=== PATIENT | female | born 1980 | race Caucasian/White ===

== ENCOUNTER 2020-08-16 14:11 | Emergency (ER) | payer OTHER ==
[2020-08-16 14:23] VITALS: BMI 28.3
[2020-08-16] MEDS ORDERED: ACETAMINOPHEN 1000 MG/100 ML VIAL (NON FORMULARY) IVPB ONE (15:32)
[2020-08-16] MEDS ORDERED: ACETAMINOPHEN INJECTION 100 ML IVPB ONE (16:35)
[2020-08-16 17:06] LABS: BASO % 0.5 % (0-2.0); EOS % 2.6 % (0-4.5); HEMATOCRIT 37.6 % (32.4-45.2); HEMOGLOBIN 12.4 GM/dL (10.7-15.3); LYMPH % 20.6 % (8-40); MCH 27.6 pg (25.7-33.7); MCHC 33.1 g/dl (32.0-36.0); MEAN CELL VOLUME 83.6 fl (80-96); MEAN PLT VOLUME 10.7 fl (7.5-11.1); MONO % 7.8 % (3.8-10.2); NEUT % 68.5 % (42.8-82.8); PLATELET COUNT 198 K/MM3 (134-434); RDW 17.9 % (11.6-15.6); WHITE BLOOD COUNT 10.5 K/mm3 (4.0-10.0)
[2020-08-16 17:28] LABS: ALBUMIN 3.2 g/dl (3.4-5.0); BLOOD UREA NITROGEN 3.9 mg/dL (7-18); CALCIUM 9.5 mg/dL (8.5-10.1)
[2020-08-16 17:32] LABS: CREATININE 0.5 mg/dL (0.55-1.3)
[2020-08-16 17:33] LABS: BILIRUBIN,TOTAL 0.5 mg/dL (0.2-1); TOT PROT 8.3 g/dl (6.4-8.2)
[2020-08-16 17:58] LABS: URINE APPEARANCE CLEAR; URINE BILIRUBIN NEGATIVE (NEGATIVE); URINE COLOR DK YELLOW; URINE GLUCOSE (UA) NEGATIVE (NEGATIVE); URINE KETONE TRACE (NEGATIVE); URINE LEUK ESTERASE NEGATIVE (NEGATIVE); URINE NITRITE NEGATIVE (NEGATIVE); URINE PROTEIN TRACE (NEGATIVE)
[2020-08-16] MEDS ORDERED: AZITHROMYCIN 500 MG TABLET PO ONE (20:44)
[2020-08-16] MEDS ORDERED: AZITHROMYCIN 250 MG TABLET ONE (21:06)
[2020-08-16 22:45] VITALS: BP 127/86; PULSE 74; TEMP 98.6
== END 2020-08-16 22:45 | disposition home or self-care (01) ==
LOC: JER 14:11
PROC: 3E0333Z Introduction of Anti-inflammatory into Peripheral Vein, Percutaneous Approach (ICD-10-PCS; principal; 2020-08-16)
PROC: 3E02329 Introduction of Other Anti-infective into Muscle, Percutaneous Approach (ICD-10-PCS; 2020-08-16)
DX: O20.0 Threatened abortion (principal)
CPT/HCPCS: 36415; 76801-TC; 76815; 80053; 81003; 83690; 84702; 85025; 86850; 86900; 86901; 87086; 87491; 87591; 93005; 93010; 99285-25; J0131

== ENCOUNTER 2021-02-13 16:05 | Inpatient (IN) | payer OTHER ==
[~2021-02-13 16:05] MED LIST: ELECTROLYTE-148 SOLN 1,000 ML IV SCH
[2021-02-13 16:07] LABS: BASO % 0.5 % (0-2.0); EOS % 0.9 % (0-4.5); LYMPH % 25.4 % (8-40); MCH 26.5 pg (25.7-33.7); MCHC 32.5 g/dl (32.0-36.0); MEAN CELL VOLUME 81.5 fl (80-96); MEAN PLT VOLUME 9.5 fl (7.5-11.1); NEUT % 68.2 % (42.8-82.8); PLATELET COUNT 197 10^3/uL (134-434); RBC 4.91 M/mm3 (3.60-5.2)
[2021-02-13 16:28] LABS: INR 1.09 (0.83-1.09); PROTHROMBIN TIME (PATIENT) 12.2 SEC (9.7-13.0)
[2021-02-13 16:31] LABS: ACTIVATED PTT 30.2 SECONDS (25.2-36.5)
[2021-02-13 16:38] LABS: BLOOD UREA NITROGEN 6.4 mg/dL (7-18); CALCIUM 8.4 mg/dL (8.5-10.1)
[2021-02-13 16:41] LABS: CREATININE 0.6 mg/dL (0.55-1.3)
[2021-02-13] MEDS ORDERED: CITRIC ACID/SODIUM CITRATE 30 ML UNIT-DOSE CUP PO ONE (16:48)
[2021-02-13] MEDS ORDERED: DEXTROSE 5%-LACTATED RINGERS 1,000 ML IV SCH (17:00)
[2021-02-13] MEDS ORDERED: LIGASURE IMPACT TP ONE (17:24)
[2021-02-13] MEDS ORDERED: ONDANSETRON 4 MG/2 ML VIAL ONE (17:46)
[2021-02-13] MEDS ORDERED: ceFAZolin SODIUM 1 GM VIAL ONE (17:46)
[2021-02-13] MEDS ORDERED: OXYTOCIN 10 UNIT/ML 10ML MDV ONE (17:58)
[2021-02-13 18:29] VITALS: BMI 30.2
[2021-02-13 19:35] LABS: CORD HCO3 23.1 mmHg (20-29); CORD PCO2 59.1 mmHg (30-78)
[2021-02-13 19:37] LABS: CORD BASE EXCESS -6.7 mmol/L (0-2); CORD HCO3 20.8 mmHg (20-29); CORD PCO2 48.4 mmHg (30-78); CORD pH 7.252 (7.14-7.44)
[2021-02-13] MEDS ORDERED: METHYLERGONOVINE MALEATE 0.2 MG/1 ML AMP IM PRN (19:54)
[2021-02-13] MEDS ORDERED: SENNOSIDES/DOCUSATE COMBO (SENNA PLUS) TABLET (UD) PO PRN (19:54)
[2021-02-13] MEDS ORDERED: oxyCODONE HCL 5 MG TABLET PO PRN (19:54)
[2021-02-13] MEDS ORDERED: OXYTOCIN 20 UNITS in 0.9% NS 20 UNIT/1,000 ML INFUS.BAG IV SCH (20:00)
[2021-02-13] MEDS ORDERED: ONDANSETRON 4 MG/2 ML VIAL IVPUSH PRN (22:34)
[2021-02-13] MEDS: IBUPROFEN 800 MG/8 ML IJ IVPB PRN (23:37)
[2021-02-14] MEDS: ACETAMINOPHEN 325 MG TABLET (FP) PO PRN ×2 (02:54→21:09)
[2021-02-14] MEDS: SIMETHICONE 80 MG TAB.CHEW (FP) PO PRN ×3 (02:54→21:15)
[2021-02-14] MEDS ORDERED: ceFAZolin SODIUM 1 GM VIAL ONE ×3 (04:22→17:06)
[2021-02-14] MEDS ORDERED: DEXTROSE 5%-WATER - 50 ML IVPB ONE ×3 (04:22→17:06)
[2021-02-14] MEDS: CEFAZOLIN 1 GM in DEXTROSE 5%-WATER - 1 GM/50 ML IVPB IVPB SCH ×3 (04:26→18:09)
[2021-02-14 06:25] LABS: BASO % 0.8 % (0-2.0); EOS % 0.2 % (0-4.5); HEMATOCRIT 35.5 % (32.4-45.2); HEMOGLOBIN 11.6 GM/dL (10.7-15.3); LYMPH % 16.2 % (8-40); MCHC 32.8 g/dl (32.0-36.0); MEAN CELL VOLUME 82.4 fl (80-96); MEAN PLT VOLUME 10.1 fl (7.5-11.1); MONO % 4.3 % (3.8-10.2); NEUT % 78.5 % (42.8-82.8); PLATELET COUNT 184 10^3/uL (134-434); RDW 19.6 % (11.6-15.6); WHITE BLOOD COUNT 14.7 K/mm3 (4.0-10.0)
[2021-02-14] MEDS: FERROUS SO4 325 MG TABLET (FP) PO SCH ×2 (08:35→17:33)
[2021-02-14] MEDS: IBUPROFEN 800 MG/8 ML IJ IVPB PRN (08:35)
[2021-02-14] MEDS ORDERED: diphenhydrAMINE HCL 25 MG CAPSULE (FP) PO PRN (08:35)
[2021-02-14] MEDS: PRENATAL VITAMINS W/ FOLIC ACID TABLET (FP) PO SCH (09:51)
[2021-02-14] MEDS ORDERED: DIPHTH,PERTUSS(ACELL),TET 0.5 ML DISP.SYRIN IM ONE (10:00)
[2021-02-14] MEDS ORDERED: ELECTROLYTE-148 SOLN 1,000 ML IV SCH (10:30)
[2021-02-14] MEDS: IBUPROFEN 600 MG TABLET (FP) PO PRN (15:18)
[2021-02-14] MEDS ORDERED: BISACODYL 10 MG SUPP.RECT RC PRN (19:55)
[2021-02-15] MEDS: SIMETHICONE 80 MG TAB.CHEW (FP) PO PRN ×2 (02:22→13:49)
[2021-02-15] MEDS: IBUPROFEN 600 MG TABLET (FP) PO PRN ×2 (02:22→13:49)
[2021-02-15] MEDS: ACETAMINOPHEN 325 MG TABLET (FP) PO PRN (05:35)
[2021-02-15] MEDS: FERROUS SO4 325 MG TABLET (FP) PO SCH (08:51)
[2021-02-15] MEDS ORDERED: ENOXAPARIN NA (PORCINE) 40 MG/0.4 ML DISP.SYRIN SQ SCH (10:00)
[2021-02-15] MEDS: PRENATAL VITAMINS W/ FOLIC ACID TABLET (FP) PO SCH (10:50)
[2021-02-15 11:10] VITALS: BP 146/81; PULSE 77; TEMP 98.2
== END 2021-02-15 14:15 | disposition home or self-care (01) | DRG 540 ==
LOC: JLDR 16:05 → J3W 20:54
PROVIDERS: ADMIT Obstetrics & Gynecology; ATTEND Obstetrics & Gynecology
PROC: 10D00Z1 Extraction of Products of Conception, Low, Open Approach (ICD-10-PCS; principal; 2021-02-13)
PROC: 0DNU0ZZ Release Omentum, Open Approach (ICD-10-PCS; 2021-02-13)
PROC: 0UB70ZZ Excision of Bilateral Fallopian Tubes, Open Approach (ICD-10-PCS; 2021-02-13)
DX: O34.211 Maternal care for low transverse scar from previous cesarean delivery (principal); N85.8 Other specified noninflammatory disorders of uterus; O24.424 Gestational diabetes mellitus in childbirth, insulin controlled; O36.8330 Maternal care for abnormalities of the fetal heart rate or rhythm, third trimester, not applicable or unspecified; O99.892 Other specified diseases and conditions complicating childbirth; N73.6 Female pelvic peritoneal adhesions (postinfective); Z3A.36 36 weeks gestation of pregnancy; Z30.2 Encounter for sterilization; Z37.0 Single live birth
CPT/HCPCS: 36415; 36600; 80048; 82803; 82962; 85025; 85610; 85730; 86780; 86850; 86900; 86901; C9803; U0003; U0005

== ENCOUNTER 2023-03-10 07:26 | Inpatient (IN) | payer OTHER ==
[2023-03-10 07:40] VITALS: BMI 26.9
[2023-03-10] MEDS ORDERED: SODIUM CHLORIDE 1,000 ML IV STA (08:17)
[2023-03-10] MEDS ORDERED: ACETAMINOPHEN 1000 MG/100 ML BAG IVPB ONE (08:17)
[2023-03-10] MEDS ORDERED: FAMOTIDINE 20 MG/50 ML IVPB 20 MG/50 ML MG IVPB ONE ×2 (08:17→08:36)
[2023-03-10] MEDS ORDERED: MAG HYDROX/AL HYDROX/SIMETH 30 ML UNIT-DOSE CUP PO ONE (08:17)
[2023-03-10] MEDS ORDERED: ONDANSETRON 4 MG/2 ML VIAL IVPUSH ONE (08:33)
[2023-03-10] MEDS ORDERED: ACETAMINOPHEN INJECTION 100 ML IVPB ONE (08:36)
[2023-03-10] MEDS ORDERED: MAG HYDROX/AL HYDROX/SIMETH 30 ML UNIT-DOSE CUP ONE (08:36)
[2023-03-10] MEDS ORDERED: ONDANSETRON 4 MG/2 ML VIAL ONE (09:15)
[2023-03-10 09:44] LABS: BASO % 0.7 % (0-2.0); EOS % 0.8 % (0-4.5); HEMATOCRIT 35.4 % (32.4-45.2); HEMOGLOBIN 11.3 GM/dL (10.7-15.3); LYMPH % 14.6 % (8-40); MCH 26.7 pg (25.7-33.7); MCHC 31.8 g/dl (32.0-36.0); MEAN PLT VOLUME 9.2 fl (7.5-11.1); MONO % 9.2 % (3.8-10.2); NEUT % 74.7 % (42.8-82.8); PLATELET COUNT 112 10^3/uL (134-434); RBC 4.22 M/mm3 (3.60-5.2); RDW 24.8 % (11.6-15.6); WHITE BLOOD COUNT 7.5 K/mm3 (4.0-10.0)
[2023-03-10 09:51] LABS: INR 1.85 (0.83-1.09); PROTHROMBIN TIME (PATIENT) 21.3 SEC (9.7-13.0)
[2023-03-10 09:53] LABS: ACTIVATED PTT 41.2 SECONDS (25.2-36.5)
[2023-03-10 10:05] LABS: CHLORIDE 98 mmol/L (98-107); POTASSIUM 3.3 mmol/L (3.5-5.1); SODIUM 133 mmol/L (136-145)
[2023-03-10 10:07] LABS: CALCIUM 7.8 mg/dL (8.5-10.1); GLUCOSE,RANDOM 118 mg/dL (74-106)
[2023-03-10 10:08] LABS: ALBUMIN 2.1 g/dl (3.4-5.0); ANION GAP 9 mmol/L (4-13); CO2 26 mmol/L (21-32); LIPASE 138 U/L (73-393)
[2023-03-10 10:10] LABS: SGPT/ALT 52 U/L (13-61)
[2023-03-10 10:11] LABS: CREATININE 0.6 mg/dL (0.55-1.3); SGOT/AST 181 U/L (15-37)
[2023-03-10 10:12] LABS: BILIRUBIN,TOTAL 2.8 mg/dL (0.2-1); TOT PROT 8.1 g/dl (6.4-8.2)
[2023-03-10 10:13] LABS: ALK PHOS 306 U/L (45-117)
[2023-03-10 10:26] LABS: BLOOD UREA NITROGEN 2.3 mg/dL (7-18)
[2023-03-10 10:44] LABS: ANISOCYTOSIS 1+; MACROCYTOSIS 0; TARGET CELLS 1+
[2023-03-10] MEDS ORDERED: POTASSIUM CHLORIDE TABS 20 MEQ TABLET.ER (FP) PO ONE ×2 (10:46→14:10)
[2023-03-10 10:59] LABS: URINE APPEARANCE CLEAR; URINE BILIRUBIN NEGATIVE (NEGATIVE); URINE COLOR YELLOW; URINE GLUCOSE (UA) NEGATIVE (NEGATIVE); URINE KETONE NEGATIVE (NEGATIVE); URINE LEUK ESTERASE NEGATIVE (NEGATIVE); URINE NITRITE NEGATIVE (NEGATIVE); URINE PROTEIN NEGATIVE (NEGATIVE)
[2023-03-10 11:00] LABS: HCG,QUALITATIVE URINE Negative
[2023-03-10 11:23] LABS: CHLORIDE 103 mmol/L (98-107); POTASSIUM 3.1 mmol/L (3.5-5.1); SODIUM 136 mmol/L (136-145)
[2023-03-10 11:25] LABS: ANION GAP 7 mmol/L (4-13); CALCIUM 7.3 mg/dL (8.5-10.1); CO2 26 mmol/L (21-32); GLUCOSE,RANDOM 107 mg/dL (74-106)
[2023-03-10 11:29] LABS: BLOOD UREA NITROGEN 2.2 mg/dL (7-18); CREATININE 0.4 mg/dL (0.55-1.3)
[2023-03-10] MEDS ORDERED: morphine CARPU-JECT 4 MG/1 ML DISP.SYRIN IVPUSH ONE (12:37)
[2023-03-10] MEDS ORDERED: POTASSIUM CHLORIDE ORAL LIQUID 20 MEQ/15 ML PO ONE (12:37)
[2023-03-10 13:43] LABS: ALBUMIN 1.9 g/dl (3.4-5.0)
[2023-03-10 13:46] LABS: BILIRUBIN,DIRECT 2.1 mg/dL (0.0-0.2); SGOT/AST 147 U/L (15-37); SGPT/ALT 44 U/L (13-61)
[2023-03-10 13:48] LABS: BILIRUBIN,TOTAL 2.6 mg/dL (0.2-1); TOT PROT 7.3 g/dl (6.4-8.2)
[2023-03-10 13:52] LABS: ALK PHOS 271 U/L (45-117)
[2023-03-10] MEDS ORDERED: morphine SULFATE 4 MG/ML VIAL ONE (14:10)
[2023-03-10] MEDS ORDERED: POTASSIUM CHLORIDE ORAL LIQUID 20 MEQ/15 ML ONE (14:11)
[2023-03-10 18:54] LABS: BF WBC & OTHER NUCLEATED CELLS 174 /mm3
[2023-03-10 20:20] LABS: COCAINE, UR NEGATIVE (NEGATIVE); METHADONE, UR NEGATIVE (NEGATIVE); OPIATES, URI NEGATIVE (NEGATIVE); PHENCYCLIDINE,URINE NEGATIVE (NEGATIVE); URINE AMPHETAMINES NEGATIVE (NEGATIVE); URINE BARBITURATES NEGATIVE (NEGATIVE); URINE BENZODIAZEPINES NEGATIVE (NEGATIVE)
[2023-03-10 21:13] LABS: BODY FLUID MESOTHELIAL 2 %
[2023-03-10 21:15] LABS: BODY FLUID MACROPHAGES 6 %; BODY FLUID MONOCYTE 13 %
[2023-03-10] MEDS: MAG HYDROX/AL HYDROX/SIMETH 30 ML UNIT-DOSE CUP PO PRN (22:20)
[2023-03-11 08:28] LABS: BASO % 0.6 % (0-2.0); EOS % 1.4 % (0-4.5); HEMATOCRIT 31.5 % (32.4-45.2); HEMOGLOBIN 9.9 GM/dL (10.7-15.3); LYMPH % 18.4 % (8-40); MCH 26.6 pg (25.7-33.7); MCHC 31.6 g/dl (32.0-36.0); MEAN CELL VOLUME 84.3 fl (80-96); MEAN PLT VOLUME 9.1 fl (7.5-11.1); MONO % 12.8 % (3.8-10.2); NEUT % 66.8 % (42.8-82.8); PLATELET COUNT 100 10^3/uL (134-434); RBC 3.73 M/mm3 (3.60-5.2); RDW 25.4 % (11.6-15.6); WHITE BLOOD COUNT 5.9 K/mm3 (4.0-10.0)
[2023-03-11 10:45] LABS: IRON SERUM 15 ug/dL (50-175)
[2023-03-11 10:46] LABS: TOTAL IRON BINDING CAPACITY 184 ug/dL (250-450)
[2023-03-11] MEDS: PANTOPRAZOLE 40 MG TABLET PO SCH (11:26)
[2023-03-11] MEDS ORDERED: PHYTONADIONE 10 MG/1 ML AMP IVPB ONE (12:00)
[2023-03-11] MEDS: KCL 10 MEQ IVPB 10 MEQ/100 ML INFUS.BAG IVPB SCH ×2 (13:27→15:06)
[2023-03-11] MEDS ORDERED: POTASSIUM CHLORIDE TABS 20 MEQ TABLET.ER (FP) PO ONE (15:00)
[2023-03-12] MEDS: PANTOPRAZOLE 40 MG TABLET PO SCH (09:01)
[2023-03-12 09:25] LABS: BASO % 0.5 % (0-2.0); EOS % 1.1 % (0-4.5); HEMATOCRIT 33.3 % (32.4-45.2); HEMOGLOBIN 10.5 GM/dL (10.7-15.3); LYMPH % 20.4 % (8-40); MCHC 31.6 g/dl (32.0-36.0); MEAN CELL VOLUME 85.4 fl (80-96); MEAN PLT VOLUME 9.1 fl (7.5-11.1); MONO % 11.4 % (3.8-10.2); NEUT % 66.6 % (42.8-82.8); PLATELET COUNT 114 10^3/uL (134-434); RDW 25.3 % (11.6-15.6); WHITE BLOOD COUNT 6.4 K/mm3 (4.0-10.0)
[2023-03-12 09:33] LABS: INR 1.52 (0.83-1.09); PROTHROMBIN TIME (PATIENT) 17.6 SEC (9.7-13.0)
[2023-03-12 09:48] LABS: CHLORIDE 106 mmol/L (98-107); POTASSIUM 3.5 mmol/L (3.5-5.1); SODIUM 136 mmol/L (136-145)
[2023-03-12 09:56] LABS: GLUCOSE,RANDOM 115 mg/dL (74-106)
[2023-03-12 09:58] LABS: ALBUMIN 1.9 g/dl (3.4-5.0); ANION GAP 6 mmol/L (4-13); CALCIUM 7.6 mg/dL (8.5-10.1); CO2 24 mmol/L (21-32); SGOT/AST 76 U/L (15-37); TOT PROT 7.2 g/dl (6.4-8.2)
[2023-03-12 09:59] LABS: ALK PHOS 263 U/L (45-117); CREATININE 0.5 mg/dL (0.55-1.3); SGPT/ALT 29 U/L (13-61)
[2023-03-12 10:24] LABS: BLOOD UREA NITROGEN 2.9 mg/dL (7-18)
[2023-03-12 12:07] LABS: MAGNESIUM 1.9 mg/dL (1.8-2.4)
[2023-03-12 12:10] LABS: PHOSPHOROUS 2.3 mg/dL (2.5-4.9)
[2023-03-12] MEDS: MAG HYDROX/AL HYDROX/SIMETH 30 ML UNIT-DOSE CUP PO PRN (23:05)
[2023-03-13 08:06] LABS: CARCINOEMBRYONIC ANTIGEN 5.6 ng/mL (0.0-4.7)
[2023-03-13 08:23] LABS: BASO % 0.7 % (0-2.0); HEMATOCRIT 32.7 % (32.4-45.2); HEMOGLOBIN 10.4 GM/dL (10.7-15.3); MCH 26.8 pg (25.7-33.7); MCHC 31.6 g/dl (32.0-36.0); MEAN CELL VOLUME 84.8 fl (80-96); MEAN PLT VOLUME 9.3 fl (7.5-11.1); MONO % 12.8 % (3.8-10.2); NEUT % 54.5 % (42.8-82.8); PLATELET COUNT 115 10^3/uL (134-434); RBC 3.86 M/mm3 (3.60-5.2); RDW 25.1 % (11.6-15.6); WHITE BLOOD COUNT 6.8 K/mm3 (4.0-10.0)
[2023-03-13 08:28] LABS: CHLORIDE 105 mmol/L (98-107); POTASSIUM 3.5 mmol/L (3.5-5.1); SODIUM 136 mmol/L (136-145)
[2023-03-13 08:31] LABS: CALCIUM 7.7 mg/dL (8.5-10.1)
[2023-03-13 08:32] LABS: ALBUMIN 1.8 g/dl (3.4-5.0); ANION GAP 6 mmol/L (4-13); CO2 25 mmol/L (21-32); GLUCOSE,RANDOM 108 mg/dL (74-106)
[2023-03-13 08:35] LABS: CREATININE 0.4 mg/dL (0.55-1.3); SGOT/AST 61 U/L (15-37); SGPT/ALT 24 U/L (13-61)
[2023-03-13 08:36] LABS: BILIRUBIN,TOTAL 2.1 mg/dL (0.2-1)
[2023-03-13 08:37] LABS: ALK PHOS 246 U/L (45-117)
[2023-03-13 08:41] LABS: BLOOD UREA NITROGEN 2.9 mg/dL (7-18)
[2023-03-13] MEDS: PANTOPRAZOLE 40 MG TABLET PO SCH (09:03)
[2023-03-13] MEDS: CEFTRIAXONE 1 GM in DEXTROSE 5%-WATER - 50 ML IVPB SCH (09:49)
[2023-03-13] MEDS: traMADol HCL 50 MG TABLET PO PRN ×2 (10:40→19:59)
[2023-03-14 09:54] LABS: INR 1.47 (0.83-1.09)
[2023-03-14 09:55] LABS: BASO % 0.8 % (0-2.0); EOS % 1.9 % (0-4.5); HEMATOCRIT 34.8 % (32.4-45.2); HEMOGLOBIN 11.6 GM/dL (10.7-15.3); MCH 27.8 pg (25.7-33.7); MCHC 33.3 g/dl (32.0-36.0); MEAN CELL VOLUME 83.5 fl (80-96); MEAN PLT VOLUME 9.5 fl (7.5-11.1); MONO % 10.4 % (3.8-10.2); NEUT % 57.9 % (42.8-82.8); PLATELET COUNT 146 10^3/uL (134-434); RBC 4.17 M/mm3 (3.60-5.2); RDW 25.3 % (11.6-15.6)
[2023-03-14 10:09] LABS: CHLORIDE 101 mmol/L (98-107); SODIUM 132 mmol/L (136-145)
[2023-03-14 10:13] LABS: BLOOD UREA NITROGEN 3.1 mg/dL (7-18); CALCIUM 8.3 mg/dL (8.5-10.1)
[2023-03-14 10:14] LABS: ALBUMIN 2.1 g/dl (3.4-5.0); CO2 25 mmol/L (21-32); GLUCOSE,RANDOM 112 mg/dL (74-106)
[2023-03-14 10:17] LABS: CREATININE 0.7 mg/dL (0.55-1.3); SGOT/AST 68 U/L (15-37); SGPT/ALT 26 U/L (13-61)
[2023-03-14 10:18] LABS: BILIRUBIN,TOTAL 2.3 mg/dL (0.2-1)
[2023-03-14 10:20] LABS: ALK PHOS 265 U/L (45-117)
[2023-03-14 10:23] LABS: ANION GAP 7 mmol/L (4-13); POTASSIUM 2.7 mmol/L (3.5-5.1)
[2023-03-14 10:31] LABS: ANISOCYTOSIS 2+; MACROCYTOSIS 0
[2023-03-14] MEDS: CEFTRIAXONE 1 GM in DEXTROSE 5%-WATER - 50 ML IVPB SCH (11:51)
[2023-03-14] MEDS: PANTOPRAZOLE 40 MG TABLET PO SCH (11:51)
[2023-03-14] MEDS: KCL 10 MEQ IVPB 10 MEQ/100 ML INFUS.BAG IVPB SCH (13:26)
[2023-03-14 15:07] LABS: BODY FLUID ALBUMIN 0.9 g/dL (Not Estab.)
[2023-03-14] MEDS: traMADol HCL 50 MG TABLET PO PRN ×2 (15:18→23:30)
[2023-03-14] MEDS: MAG HYDROX/AL HYDROX/SIMETH 30 ML UNIT-DOSE CUP PO PRN (15:19)
[2023-03-14] MEDS ORDERED: ACETAMINOPHEN 1000 MG/100 ML BAG IVPB ONE (18:09)
[2023-03-15 08:58] LABS: INR 1.58 (0.83-1.09); PROTHROMBIN TIME (PATIENT) 18.3 SEC (9.7-13.0)
[2023-03-15 09:05] LABS: BASO % 0.9 % (0-2.0); EOS % 1.9 % (0-4.5); HEMATOCRIT 33.6 % (32.4-45.2); HEMOGLOBIN 10.9 GM/dL (10.7-15.3); LYMPH % 29.4 % (8-40); MCH 27.6 pg (25.7-33.7); MCHC 32.3 g/dl (32.0-36.0); MEAN CELL VOLUME 85.2 fl (80-96); MEAN PLT VOLUME 9.1 fl (7.5-11.1); MONO % 10.7 % (3.8-10.2); NEUT % 57.1 % (42.8-82.8); PLATELET COUNT 159 10^3/uL (134-434); RBC 3.95 M/mm3 (3.60-5.2); RDW 24.6 % (11.6-15.6); WHITE BLOOD COUNT 7.4 K/mm3 (4.0-10.0)
[2023-03-15 09:28] LABS: CHLORIDE 102 mmol/L (98-107); POTASSIUM 3.1 mmol/L (3.5-5.1); SODIUM 137 mmol/L (136-145)
[2023-03-15] MEDS: PANTOPRAZOLE 40 MG TABLET PO SCH (09:56)
[2023-03-15] MEDS: traMADol HCL 50 MG TABLET PO PRN ×2 (09:56→21:26)
[2023-03-15] MEDS ORDERED: KCL 10 MEQ IVPB 10 MEQ/100 ML INFUS.BAG IVPB SCH (10:00)
[2023-03-15] MEDS ORDERED: MAGNESIUM 1GM/D5W 100ML - 100 ML IVPB IVPB ONE (10:00)
[2023-03-15] MEDS ORDERED: PIPERACILLIN/TAZOB 3.375 GM 3.375 GM in DEXTROSE 5%-WATER - 50 ML IVPB SCH (10:00)
[2023-03-15 10:18] LABS: ALBUMIN 2.1 g/dl (3.4-5.0)
[2023-03-15 10:19] LABS: CALCIUM 8.4 mg/dL (8.5-10.1); GLUCOSE,RANDOM 105 mg/dL (74-106)
[2023-03-15 10:21] LABS: CREATININE 0.5 mg/dL (0.55-1.3)
[2023-03-15 10:22] LABS: BILIRUBIN,TOTAL 2.2 mg/dL (0.2-1); SGOT/AST 64 U/L (15-37); SGPT/ALT 24 U/L (13-61); TOT PROT 7.9 g/dl (6.4-8.2)
[2023-03-15 10:24] LABS: ALK PHOS 236 U/L (45-117)
[2023-03-15 10:30] LABS: ANION GAP 9 mmol/L (4-13); BLOOD UREA NITROGEN 2.4 mg/dL (7-18); CO2 26 mmol/L (21-32)
[2023-03-15] MEDS: CLARITHROMYCIN 500 MG TABLET (UD) PO SCH ×2 (14:32→21:28)
[2023-03-15] MEDS: AMOXICILLIN 500 MG CAPSULE (FP) PO SCH (18:13)
[2023-03-15] MEDS: CEFTRIAXONE 1 GM in DEXTROSE 5%-WATER - 50 ML IVPB SCH (18:13)
[2023-03-15] MEDS: MAG HYDROX/AL HYDROX/SIMETH 30 ML UNIT-DOSE CUP PO PRN (23:03)
[2023-03-16] MEDS: AMOXICILLIN 500 MG CAPSULE (FP) PO SCH ×2 (06:19→18:00)
[2023-03-16] MEDS: traMADol HCL 50 MG TABLET PO PRN ×2 (06:20→17:57)
[2023-03-16 07:34] LABS: BASO % 0.9 % (0-2.0); EOS % 1.9 % (0-4.5); HEMATOCRIT 30.9 % (32.4-45.2); LYMPH % 25.8 % (8-40); MCH 27.4 pg (25.7-33.7); MCHC 32.3 g/dl (32.0-36.0); MEAN CELL VOLUME 84.9 fl (80-96); MEAN PLT VOLUME 8.8 fl (7.5-11.1); MONO % 11.2 % (3.8-10.2); NEUT % 60.2 % (42.8-82.8); PLATELET COUNT 151 10^3/uL (134-434); RBC 3.64 M/mm3 (3.60-5.2); RDW 24.9 % (11.6-15.6); WHITE BLOOD COUNT 6.7 K/mm3 (4.0-10.0)
[2023-03-16 07:36] LABS: INR 1.65 (0.83-1.09)
[2023-03-16 07:47] LABS: CHLORIDE 102 mmol/L (98-107); POTASSIUM 3.2 mmol/L (3.5-5.1); SODIUM 136 mmol/L (136-145)
[2023-03-16 07:54] LABS: ALBUMIN 1.8 g/dl (3.4-5.0); ANION GAP 6 mmol/L (4-13); CO2 27 mmol/L (21-32)
[2023-03-16 07:56] LABS: CREATININE 0.4 mg/dL (0.55-1.3); GLUCOSE,RANDOM 104 mg/dL (74-106); LDH 172 U/L (84-246)
[2023-03-16 07:58] LABS: BILIRUBIN,TOTAL 1.6 mg/dL (0.2-1); SGOT/AST 61 U/L (15-37); SGPT/ALT 23 U/L (13-61); TOT PROT 6.9 g/dl (6.4-8.2)
[2023-03-16 08:24] LABS: ALK PHOS 204 U/L (45-117); BLOOD UREA NITROGEN 1.8 mg/dL (7-18)
[2023-03-16] MEDS ORDERED: SODIUM PHOSPHATE - 20 MM in DEXTROSE 5%-WATER - 250 ML IVPB ONE (10:00)
[2023-03-16] MEDS ORDERED: cefTRIAXone SODIUM 1 GM VIAL ONE (10:41)
[2023-03-16] MEDS: CALCIUM 500MG/VIT-D 200 UNITS COMBO TABLET (FP) PO SCH ×2 (10:52→21:15)
[2023-03-16] MEDS: MULTIVITAMINS (DAILY MVI) TABLET (FP) PO SCH (10:52)
[2023-03-16] MEDS: PANTOPRAZOLE 40 MG TABLET PO SCH (10:52)
[2023-03-16] MEDS: MAGNESIUM OXIDE 400 MG TABLET (FP) PO SCH ×2 (10:52→21:15)
[2023-03-16] MEDS: CLARITHROMYCIN 500 MG TABLET (UD) PO SCH ×2 (10:53→22:09)
[2023-03-16] MEDS: AMINO ACIDS 4.25%/D5W 1,000 ML IV SCH (10:54)
[2023-03-16] MEDS: CEFTRIAXONE 1 GM in DEXTROSE 5%-WATER - 50 ML IVPB SCH (11:12)
[2023-03-16] MEDS: POTASSIUM CHLORIDE TABS 20 MEQ TABLET.ER (FP) PO SCH (17:57)
[2023-03-17] MEDS: AMOXICILLIN 500 MG CAPSULE (FP) PO SCH ×2 (06:04→18:59)
[2023-03-17] MEDS ORDERED: IRON SUCROSE INJECTION 100 MG in SODIUM CHLORIDE 95 ML IVPB ONE (08:21)
[2023-03-17 08:31] LABS: BASO % 0.8 % (0-2.0); EOS % 1.4 % (0-4.5); HEMOGLOBIN 10.7 GM/dL (10.7-15.3); LYMPH % 30.5 % (8-40); MCH 27.2 pg (25.7-33.7); MCHC 32.4 g/dl (32.0-36.0); MEAN PLT VOLUME 8.9 fl (7.5-11.1); MONO % 8.9 % (3.8-10.2); NEUT % 58.4 % (42.8-82.8); PLATELET COUNT 193 10^3/uL (134-434); RBC 3.93 M/mm3 (3.60-5.2); RDW 24.2 % (11.6-15.6)
[2023-03-17 08:51] LABS: CHLORIDE 102 mmol/L (98-107); SODIUM 135 mmol/L (136-145)
[2023-03-17 08:55] LABS: CALCIUM 7.8 mg/dL (8.5-10.1); CO2 28 mmol/L (21-32); GLUCOSE,RANDOM 106 mg/dL (74-106); MAGNESIUM 1.9 mg/dL (1.8-2.4)
[2023-03-17 08:58] LABS: CREATININE 0.5 mg/dL (0.55-1.3); PHOSPHOROUS 2.9 mg/dL (2.5-4.9)
[2023-03-17 09:01] LABS: ANION GAP 5 mmol/L (4-13); BLOOD UREA NITROGEN 2.6 mg/dL (7-18); POTASSIUM 2.9 mmol/L (3.5-5.1)
[2023-03-17] MEDS ORDERED: KCL 10 MEQ IVPB 10 MEQ/100 ML INFUS.BAG IVPB SCH (10:00)
[2023-03-17] MEDS: CEFTRIAXONE 1 GM in DEXTROSE 5%-WATER - 50 ML IVPB SCH (10:37)
[2023-03-17] MEDS: POTASSIUM CHLORIDE TABS 20 MEQ TABLET.ER (FP) PO SCH (10:37)
[2023-03-17] MEDS: PANTOPRAZOLE 40 MG TABLET PO SCH (10:37)
[2023-03-17] MEDS: MAGNESIUM OXIDE 400 MG TABLET (FP) PO SCH ×2 (10:37→22:26)
[2023-03-17] MEDS: AMINO ACIDS 4.25%/D5W 1,000 ML IV SCH ×2 (10:37→22:25)
[2023-03-17] MEDS: MULTIVITAMINS (DAILY MVI) TABLET (FP) PO SCH (10:38)
[2023-03-17] MEDS: CLARITHROMYCIN 500 MG TABLET (UD) PO SCH ×2 (10:38→22:49)
[2023-03-17] MEDS: CALCIUM 500MG/VIT-D 200 UNITS COMBO TABLET (FP) PO SCH ×2 (10:38→22:26)
[2023-03-17] MEDS: MAG HYDROX/AL HYDROX/SIMETH 30 ML UNIT-DOSE CUP PO PRN (17:08)
[2023-03-18] MEDS ORDERED: ACETAMINOPHEN 325 MG TABLET (FP) PO ONE (03:24)
[2023-03-18] MEDS: AMINO ACIDS 4.25%/D5W 1,000 ML IV SCH ×2 (03:41→09:01)
[2023-03-18] MEDS: AMOXICILLIN 500 MG CAPSULE (FP) PO SCH ×2 (07:02→19:10)
[2023-03-18] MEDS: PANTOPRAZOLE 40 MG TABLET PO SCH (09:51)
[2023-03-18] MEDS: CALCIUM 500MG/VIT-D 200 UNITS COMBO TABLET (FP) PO SCH ×2 (09:51→22:02)
[2023-03-18] MEDS: CEFTRIAXONE 1 GM in DEXTROSE 5%-WATER - 50 ML IVPB SCH (09:51)
[2023-03-18] MEDS: MULTIVITAMINS (DAILY MVI) TABLET (FP) PO SCH (09:51)
[2023-03-18] MEDS: POTASSIUM CHLORIDE TABS 20 MEQ TABLET.ER (FP) PO SCH (09:51)
[2023-03-18] MEDS: MAGNESIUM OXIDE 400 MG TABLET (FP) PO SCH (09:51)
[2023-03-18] MEDS: CLARITHROMYCIN 500 MG TABLET (UD) PO SCH ×2 (09:52→22:12)
[2023-03-18] MEDS ORDERED: SIMETHICONE 80 MG TAB.CHEW (FP) PO PRN (21:22)
[2023-03-19] MEDS: MAG HYDROX/AL HYDROX/SIMETH 30 ML UNIT-DOSE CUP PO PRN (01:37)
[2023-03-19] MEDS: AMOXICILLIN 500 MG CAPSULE (FP) PO SCH ×2 (06:27→21:33)
[2023-03-19 09:36] LABS: EOS % 1.5 % (0-4.5); HEMATOCRIT 31.9 % (32.4-45.2); HEMOGLOBIN 9.9 GM/dL (10.7-15.3); LYMPH % 24.1 % (8-40); MCH 26.2 pg (25.7-33.7); MCHC 31.1 g/dl (32.0-36.0); MEAN CELL VOLUME 84.3 fl (80-96); MEAN PLT VOLUME 8.6 fl (7.5-11.1); MONO % 8.9 % (3.8-10.2); NEUT % 64.5 % (42.8-82.8); PLATELET COUNT 213 10^3/uL (134-434); RBC 3.79 M/mm3 (3.60-5.2); RDW 23.6 % (11.6-15.6); WHITE BLOOD COUNT 7.5 K/mm3 (4.0-10.0)
[2023-03-19 09:38] LABS: INR 1.79 (0.83-1.09); PROTHROMBIN TIME (PATIENT) 20.6 SEC (9.7-13.0)
[2023-03-19 09:58] LABS: POTASSIUM 3.3 mmol/L (3.5-5.1)
[2023-03-19 09:59] LABS: BLOOD UREA NITROGEN 3.1 mg/dL (7-18)
[2023-03-19 10:02] LABS: CREATININE 0.4 mg/dL (0.55-1.3)
[2023-03-19 10:03] LABS: BILIRUBIN,TOTAL 1.4 mg/dL (0.2-1)
[2023-03-19 10:04] LABS: TOT PROT 7.2 g/dl (6.4-8.2)
[2023-03-19] MEDS: CALCIUM 500MG/VIT-D 200 UNITS COMBO TABLET (FP) PO SCH ×2 (10:18→21:32)
[2023-03-19] MEDS: PANTOPRAZOLE 40 MG TABLET PO SCH (10:18)
[2023-03-19] MEDS: POTASSIUM CHLORIDE TABS 20 MEQ TABLET.ER (FP) PO SCH (10:18)
[2023-03-19] MEDS: FUROSEMIDE 20 MG TABLET (FP) PO SCH (10:18)
[2023-03-19 10:19] LABS: ANISOCYTOSIS 3+; MACROCYTOSIS 0; TARGET CELLS 2+
[2023-03-19] MEDS: SPIRONOLACTONE 25 MG TABLET PO SCH (10:19)
[2023-03-19] MEDS: MULTIVITAMINS (DAILY MVI) TABLET (FP) PO SCH (10:19)
[2023-03-19] MEDS: CLARITHROMYCIN 500 MG TABLET (UD) PO SCH ×2 (10:19→21:33)
[2023-03-19] MEDS: CEFTRIAXONE 1 GM in DEXTROSE 5%-WATER - 50 ML IVPB SCH (12:18)
[2023-03-19 12:49] LABS: BF WBC & OTHER NUCLEATED CELLS 517 /mm3
[2023-03-19 13:37] LABS: BODY FLUID MONOCYTE 10 %
[2023-03-20] MEDS: AMOXICILLIN 500 MG CAPSULE (FP) PO SCH (06:03)
[2023-03-20 07:41] LABS: BASO % 1.2 % (0-2.0); EOS % 1.9 % (0-4.5); HEMATOCRIT 30.9 % (32.4-45.2); HEMOGLOBIN 9.7 GM/dL (10.7-15.3); LYMPH % 25.4 % (8-40); MCH 26.4 pg (25.7-33.7); MCHC 31.4 g/dl (32.0-36.0); MEAN CELL VOLUME 84.1 fl (80-96); MEAN PLT VOLUME 8.9 fl (7.5-11.1); MONO % 8.5 % (3.8-10.2); PLATELET COUNT 212 10^3/uL (134-434); RBC 3.67 M/mm3 (3.60-5.2); RDW 24.2 % (11.6-15.6); WHITE BLOOD COUNT 8.9 K/mm3 (4.0-10.0)
[2023-03-20 08:05] LABS: CALCIUM 8.3 mg/dL (8.5-10.1)
[2023-03-20 08:06] LABS: ALBUMIN 1.9 g/dl (3.4-5.0); BLOOD UREA NITROGEN 5.9 mg/dL (7-18)
[2023-03-20 08:09] LABS: CREATININE 0.4 mg/dL (0.55-1.3)
[2023-03-20 08:11] LABS: BILIRUBIN,TOTAL 1.5 mg/dL (0.2-1); POTASSIUM 3.3 mmol/L (3.5-5.1); TOT PROT 7.2 g/dl (6.4-8.2)
[2023-03-20 08:25] LABS: INR 1.75 (0.83-1.09); PROTHROMBIN TIME (PATIENT) 20.2 SEC (9.7-13.0)
[2023-03-20] MEDS: CALCIUM 500MG/VIT-D 200 UNITS COMBO TABLET (FP) PO SCH (09:27)
[2023-03-20] MEDS: SPIRONOLACTONE 25 MG TABLET PO SCH (09:27)
[2023-03-20] MEDS: FUROSEMIDE 20 MG TABLET (FP) PO SCH (09:27)
[2023-03-20] MEDS: PANTOPRAZOLE 40 MG TABLET PO SCH (09:27)
[2023-03-20] MEDS: POTASSIUM CHLORIDE TABS 20 MEQ TABLET.ER (FP) PO SCH (09:28)
[2023-03-20] MEDS: MULTIVITAMINS (DAILY MVI) TABLET (FP) PO SCH (09:28)
[2023-03-20] MEDS: CLARITHROMYCIN 500 MG TABLET (UD) PO SCH (09:28)
[2023-03-20 09:50] VITALS: BP 113/51; PULSE 93; RESP 18; TEMP 97.5
== END 2023-03-20 15:11 | disposition home or self-care (01) | DRG 280 ==
LOC: JER 07:26 → JERBED 12:33 → J7W 16:20
PROVIDERS: ADMIT Internal Medicine; ATTEND Internal Medicine
PROC: 0W9G3ZZ Drainage of Peritoneal Cavity, Percutaneous Approach (ICD-10-PCS; principal; 2023-03-10)
PROC: 0DB68ZX Excision of Stomach, Via Natural or Artificial Opening Endoscopic, Diagnostic (ICD-10-PCS; 2023-03-12)
PROC: 0W9G3ZZ Drainage of Peritoneal Cavity, Percutaneous Approach (ICD-10-PCS; 2023-03-19)
DX: K70.31 Alcoholic cirrhosis of liver with ascites (principal); I10 Essential (primary) hypertension; D69.6 Thrombocytopenia, unspecified; K76.9 Liver disease, unspecified; E87.6 Hypokalemia; K76.6 Portal hypertension; R16.1 Splenomegaly, not elsewhere classified; K25.9 Gastric ulcer, unspecified as acute or chronic, without hemorrhage or perforation; D50.9 Iron deficiency anemia, unspecified; J18.9 Pneumonia, unspecified organism; E83.42 Hypomagnesemia; K44.9 Diaphragmatic hernia without obstruction or gangrene; D68.9 Coagulation defect, unspecified; B96.81 Helicobacter pylori [H. pylori] as the cause of diseases classified elsewhere; E88.09 Other disorders of plasma-protein metabolism, not elsewhere classified; E83.39 Other disorders of phosphorus metabolism
CPT/HCPCS: 0241U-QW; 36415; 71046-TC-FY; 74177-TC; 74178-TC; 74183-TC; 76700-TC; 76942-TC; 80048; 80053; 80076; 80307; 81003; 82042; 82105; 82150; 82272; 82378; 82465; 82728; 82945; 83516; 83540; 83550; 83615; 83690; 83735; 83986; 84100; 84157; 84478; 84484; 84703; 85025; 85027; 85045; 85610; 85730; 86038; 86140; 86301; 86304; 86704; 86705; 86708; 86803; 86850; 86900; 86901; 87070; 87075; 87086; 87102; 87116; 87205; 87206; 87210; 87340; 87517; 87522; 88108; 88305-TC; 93005; 93010; 99285-25; J1756; Q9967

== ENCOUNTER 2023-11-16 09:00 | Emergency (ER) | payer OTHER ==
[2023-11-16 09:13] VITALS: BMI 21.4
[2023-11-16] MEDS ORDERED: INSULIN REGULAR HUMAN 100 UNITS/ML *VIAL ONE (09:44)
[2023-11-16] MEDS: SODIUM CHLORIDE 1,000 ML IV STA (10:16)
[2023-11-16] MEDS: INSULIN REGULAR HUMAN 100 UNITS/ML *VIAL SQ ONE (10:17)
[2023-11-16] MEDS ORDERED: ONDANSETRON *ODT* 4 MG TABLET ONE (10:19)
[2023-11-16 10:20] LABS: VENOUS BASE EXCESS -1.1 mmol/L (-2-2); VENOUS O2 SATURATION 69.9 % (70-80); VENOUS PH 7.43 (7.310-7.410)
[2023-11-16 10:22] LABS: BASO % 0.6 % (0-2.0); HEMATOCRIT 35.7 % (32.4-45.2); HEMOGLOBIN 11.8 GM/dL (10.7-15.3); LYMPH % 29.4 % (8-40); MCH 24.6 pg (25.7-33.7); MCHC 33.1 g/dl (32.0-36.0); MEAN CELL VOLUME 74.2 fl (80-96); MEAN PLT VOLUME 9.2 fl (7.5-11.1); MONO % 8.5 % (3.8-10.2); NEUT % 58.5 % (42.8-82.8); PLATELET COUNT 81 10^3/uL (134-434); RDW 21.8 % (11.6-15.6); WHITE BLOOD COUNT 3.9 K/mm3 (4.0-10.0)
[2023-11-16] MEDS: ONDANSETRON 4 MG TABLET PO ONE (10:26)
[2023-11-16] MEDS: ONDANSETRON *ODT* 4 MG TABLET SL ONE (10:31)
[2023-11-16] MEDS: IBUPROFEN 200 MG TABLET PO ONE (10:31)
[2023-11-16] MEDS ORDERED: IBUPROFEN 400 MG TABLET (FP) PO ONE (10:36)
[2023-11-16 10:37] LABS: POTASSIUM 3.7 mmol/L (3.5-5.1)
[2023-11-16 10:38] LABS: CALCIUM 8.4 mg/dL (8.5-10.1)
[2023-11-16 10:39] LABS: ALBUMIN 2.6 g/dl (3.4-5.0); BLOOD UREA NITROGEN 5.6 mg/dL (7-18)
[2023-11-16] MEDS: IBUPROFEN 400 MG TABLET (FP) PO ONE (10:39)
[2023-11-16 10:42] LABS: CREATININE 0.5 mg/dL (0.55-1.3)
[2023-11-16 10:44] LABS: BILIRUBIN,TOTAL 0.8 mg/dL (0.2-1); TOT PROT 7.8 g/dl (6.4-8.2)
[2023-11-16 12:25] LABS: ANISOCYTOSIS 2+; MACROCYTOSIS 0
[2023-11-16] MEDS ORDERED: AMOX TR/POT CLAV 875MG/125MG TABLETS (FP) ONE (15:26)
[2023-11-16 15:30] VITALS: BP 118/72; PULSE 88; RESP 16; TEMP 98.3
[2023-11-16] MEDS: AMOX TR/POT CLAV 875MG/125MG TABLETS (FP) PO ONE (15:50)
== END 2023-11-16 15:55 | disposition home or self-care (01) ==
LOC: JER 09:00
PROC: 3E0337Z Introduction of Electrolytic and Water Balance Substance into Peripheral Vein, Percutaneous Approach (ICD-10-PCS; principal; 2023-11-16)
PROC: 3E013VG Introduction of Insulin into Subcutaneous Tissue, Percutaneous Approach (ICD-10-PCS; 2023-11-16)
DX: K52.9 Noninfective gastroenteritis and colitis, unspecified (principal); R11.2 Nausea with vomiting, unspecified; R10.31 Right lower quadrant pain; R10.32 Left lower quadrant pain; R51.9 Headache, unspecified
CPT/HCPCS: 36415; 74177-TC; 80053; 82803; 82962; 85025; 93005; 93010; 99285-25; Q0162; Q9967